=== PATIENT | male | born 1955 | race African-American/Black ===

== ENCOUNTER → 2020-11-22 | Outpatient (CLI) | payer OTHER ==
[~2020-11-22] MED LIST: BUPIVACAINE/PF 0.5% ONE; CEFAZOLIN 1,000 MG ONE; DEXAMETHASONE 4 MG/ML, 1ML ONE; LIDOCAINE-MPF 2% ,5ML ONE; ONDANSETRON 2MG/ML, 2ML ONE; PROPOFOL 10 MG/ML, 20ML ONE
== END | disposition home or self-care (01) ==
LOC: RAD 12:20
PROVIDERS: ATTEND Surgery
DX: K44.9 Diaphragmatic hernia without obstruction or gangrene (principal); K22.2 Esophageal obstruction; R13.10 Dysphagia, unspecified
CPT/HCPCS: 74220; J0690; J1100; J2405; J2704